=== PATIENT | female | born 1990 | race Caucasian/White ===

== ENCOUNTER 2019-05-25 14:45 | Inpatient (IN) | payer BC, SELFPAY ==
[2015-01-15 22:03] VITALS: BMI 27.1
[2019-05-25] VITALS (35 sets, daily range): BP systolic 91–130; BP diastolic 50–79; PULSE 62–106; TEMP 36.5–37.7; O2SAT 98–100; BMI 32.5
[2019-05-25 14:42] LABS: ROM Internal Control Test YES-OK TO RESULT pt. (Internal QC)
[2019-05-25 14:43] LABS: ROM Patient Test POSITIVE (Negative)
[2019-05-25] MEDS: Lactated Ringers 1,000 ML 200 ML IV ×2 (15:20→20:35)
[2019-05-25 15:35] LABS: Absolute Lymphocyte Count 1.35 X10^3/uL (0.83-4.51); Absolute Neutrophil Count 7.9 X10^3/uL (2.0-7.7); Basophil# 0.05 X10^3/uL; Basophil% 0.5 % (0-1); Eosinophil# 0.06 X10^3/uL; Eosinophils% 0.6 % (0-5); Hematocrit 32.5 % (37-47); Hemoglobin 10.4 g/dL (12.0-15.0); Lymphocyte # 1.35 X10^3/ul (4.0); Lymphocyte % 13.4 % (19-41); Mean Corpuscular Hgb 28.8 pg (27.0-32.0); Monocyte# 0.62 X10^3/uL; Monocyte% 6.1 % (0-10); NRBC Flagged by Analyzer 0 % (0-5); Neutrophil % 78.3 % (47-70); Platelet Count 153 K/mm3 (150-450); RBC Distribution Width CV 16.1 % (11.6-14.6); RBC Distribution Width SD 52.6 fl (35.1-43.9); Red Blood Count 3.61 M/mm3 (4.2-5.4); White Blood Count 10.1 K/mm3 (4.4-11.0)
[2019-05-25] MEDS: Lactated Ringers 500 ML 999 ML IV ×2 (18:05→21:36)
[2019-05-25] MEDS: Oxytocin 30 units/NS 500 ml 30 UNITS/500 ML IV.SOLN IV (18:38)
--- NOTE | 2019-05-25 18:39 | HP.PCM_ITS ---
History Date of Admission: 01/11/15 Final JONAH: 06/03/19 Final JONAH Source: LMP Gestational age: 38 Weeks and 5 Days History of this : This is a 28 year-old, 2 para 1 at 38-5/7 weeks presents for spontaneous rupture membranes. She is also having some contractions. She thinks she had spontaneous rupture membranes sometime in the middle of the night or at approximately 7 AM when she awoke. She denies any gross vaginal bleeding. She is had good movement. Allergies amoxicillin Allergy (Verified 05/25/19 14:22) Hives azithromycin [From Zithromax Z-Mele] Allergy (Verified 05/25/19 14:22) Rash macadamia nut oil Allergy (Verified 05/25/19 13:42) Shortness of breath Home Medications: Home Medications Vits [Prenatabs FA ] 1 tablet PO DAILY 06/24/14 Ibuprofen [Motrin] 600 mg PO Q6H PRN PRN #60 tablet 01/18/15 Cetirizine HCl [Zyrtec] 1 dose PO DAILY 05/25/19 Omeprazole Magnesium [Prilosec Otc] 1 tab PO DAILY 05/25/19 Smoking Status: Never smoker Alcohol: None Number of Fetus(es): 1 NST - FHR Rate Baby A Baseline: normal Variability:: Moderate Accelerations:: 15 x 15 Decelerations:: None NST Reactive:: Yes FHR Category:: Category I Uterine Activity:: irreg ctxs History Past Pregnancies: Past Pregnancies Delivery Date Name GA/ Weeks Outcome Route Wt Infant Sex Labor Length Anesthesia Delivery Location Provider FOB Expected Infant Delivery Method: Spontaneous Vaginal Review of Systems Constitutional: Denies: Fever Respiratory: Denies: Cough, Shortness of Breath Gastrointestinal: Denies: Abdominal Pain, Constipation, Diarrhea Neurological: Denies: Blurred vision, Slurred speech, Confusion Physical Exam Vitals: Vital Signs Temp Pulse BP Pulse Ox 99.3 F H 106 H 117/79 100 05/25/19 18:02 05/25/19 18:02 05/25/19 18:02 05/25/19 18:02 General: Alert, Cooperative, No apparent distress Cardiovascular: Regular rate Lungs: Normal air movement Abdomen: Soft, Non Tender, Non-Distended, Gravid COMMUNITY OUTREACH COORDINATOR: Normal external genitalia Estimated gestational size: Appropriate for gestational size Presentation: Cephalic Assessment/Plan This is a 28 year-old, 2 para 1 at 38-5/7 weeks gestation with spontaneous rupture membranes. Early labor. Pitocin augmentation. May have epidural as needed for pain control. Estimated weight is less than 4500 g clinically and pelvis clinically adequate to expect vaginal delivery.
[2019-05-25] MEDS: fentaNYL-bupivacaine (epidural) 100 ML BAG EPIDURAL ×2 (19:19→23:20)
[2019-05-26] VITALS (33 sets, daily range): BP systolic 103–123; BP diastolic 55–68; PULSE 80–112; RESP 14–18; TEMP 36.2–38.2; O2SAT 99–100
--- NOTE | 2019-05-26 | PLAC_PTH ---
PATIENT: CATHY ARRIETA LOC: [facility] U#:[id number] AGE/SX: 28/F ROOM: WP015 RE05/25/[address]: Dr. Natacha Acevedo MD : 1990 BED: 1 DIS: 05/28/2019 SPEC #: [id number] RECD: 05/26/19 08:57 STATUS: GISELA REQ #: [id number] MARJORIE: 05/26/19 00:[address]: Natacha Acevedo DEPT: SURGICAL PATHOLOGY RECD BY: Kennedy Khan ENTERED: 05/29/19 10:05 SP TYPE: PLACENTA OTHR DR: Dr. Ramon Asencio, DO Tissues: Placenta, NOS Procedures: Surgery Specimen Level V HEADER OPERATION: Vaginal delivery PRE-OP DIAGNOSIS: Fever, prolonged rupture of membranes TISSUE SUBMITTED: Placenta MICROSCOPIC DIAGNOSIS Placenta: Placental disc - third trimester placenta (573 gm). Membranes - no pathologic diagnosis. Umbilical cord - three blood vessels and no pathologic diagnosis. SJ:josh 05/30/19 MICROSCOPIC DESCRIPTION Slides are reviewed. GROSS DESCRIPTION SPECIMEN: PLACENTA / CLINICAL INFORMATION: A. Weight: 3.603 kg B. Gestational Age: 38 weeks C. Sex: Female PLACENTAL WEIGHT (POST FIXATION): 573 gm PLACENTAL DIMENSIONS: 19 x 17 x 4 cm PLACENTAL SHAPE: Usual ovoid PLACENTAL WEIGHT FOR GESTATIONAL AGE: Within 10-99th percentile MEMBRANES - Present A. Insertion: Marginal B. Site of rupture from edge: 4 cm from edge of placental disc C. Color of membrane: Marley-smith D. Abnormalities: None UMBILICAL CORD - Present A. Color: Marley-smith B. Insertion: Paracentral C. Length: 17 cm D. Diameter: 1.4 cm E. Number of vessels: Three F. Abnormalities: None PLACENTAL DISC - Present A. Color of surface: Marley-smith B. surface abnormalities: None C. Maternal cotyledons: Intact with minimal tears D. Attached retro placental clot: No clot E. Cut surface: Dark red and spongy F. Lesions: None G. Separate clot: Absent SECTIONS SUBMITTED: 1. Membrane roll 2. Cord, maternal end 3. Cord, end 4. Placental disc, and maternal surfaces 5. Placental disc, and maternal surfaces 6. Placental disc, and maternal surfaces SJ:josh 05/29/19 TC:4 CPT: 64686
[2019-05-26] MEDS: Lactated Ringers 500 ML 999 ML IV ×2 (01:30→05:36)
[2019-05-26] MEDS: Lactated Ringers 1,000 ML 200 ML IV (02:41)
[2019-05-26] MEDS: Amnioinfusion- 0.9% NS 1,000 ML IV.SOLN. INTRA-UTER (04:00)
[2019-05-26] MEDS: Acetaminophen 325 MG Tablet PO (04:20)
[2019-05-26] MEDS: fentaNYL-bupivacaine (epidural) 100 ML BAG EPIDURAL (04:50)
[2019-05-26] MEDS: Oxytocin 30 units/NS 500 ml 30 UNITS/500 ML IV.SOLN 334 UNITS IV (07:23)
--- NOTE | 2019-05-26 07:43 | PCM.OPRPT ---
Report of Operation Date of Procedure: 05/26/19 Vaginal Delivery Maternal Presentation: Active Labor, Spontaneous Rupture of Membranes Amniotic Membrane Rupture Type: Spontaneous at home Amniotic Fluid Description: Clear Final JONAH: 06/03/19 Final JONAH Source: US <20 weeks Gestational age: 38 Weeks and 6 Days Date of Procedure: 05/26/19 Pre-Operative Diagnosis: labor, prolonged rupture of membranes, suspected triple I Post-Operative Diagnosis: same + persistent category 2 FHTs Surgery/ Procedure Performed: Vacuum Assisted Vaginal Delivery - outlet Type of Anesthesia: Epidural Description of Procedure: The patient had a fever with tachycardia. She had prolonged rupture membranes. She had suspected triple I. There was persistent tachycardia with variable decelerations despite an amnioinfusion and other resuscitative measures. The patient had pushed to where the position was BRANDON and the head was labia 3 cm and the skull was on the pelvic floor. A Dumont catheter was in place. Estimated weight was less than 4500 g. The pelvis was clinically adequate. Epidural was adequate. I discussed with the patient and her partner option of trial of outlet vacuum-assisted vaginal delivery. They desire to proceed. The vacuum was placed on the flexion point and the vacuum created to 550 mmHg. I pulled with 1 contraction with no pop offs to and the vacuum was removed. The patient then delivered the remainder the head on the next push. A loose nuchal cord x1 was easily reduced. The remainder the was delivered with maternal pushing and gentle traction only in less than 15 seconds without difficulty. The infant was placed on the maternal abdomen where it was attended to by the nursing staff. Cord clamping was only delayed about 30 seconds as the baby was not making vigorous crying efforts immediately upon delivery. As soon as the cord was clamped and cut, the infant became vigorous and was not removed from the maternal abdomen. The placenta was delivered spontaneously and intact. The second-degree perineal laceration was repaired with 2-0 Vicryl suture in a running standard fashion. Cervix and vagina were intact. Sponge and needle counts were correct. Vaginal sweep was completed by me. Presentation: BRANDON Placental Delivery Description: Spontaneous Placenta Disposition: [facility] Cord Vessel Description: 3 Vessels Nuchal Cord Compression: Without compression Cord Gases drawn per routine: VBG - unable to draw ABG Cord Entanglement: Around neck x 1, loose Drain: Dumont to straight drain Estimated Blood Loss: 300 Infant A gender: Female - Whit (1 minute): 8 (5 minute): 9 Episiotomy Description: None Laceration: 2nd degree Medications given after delivery: IV Pitocin Complications: None
[2019-05-26 09:03] LABS: Pathology Specimen OB SEE PATHOLOGY REPORT
[2019-05-26] MEDS: Acetaminophen 500 MG Tablet 1000 MG PO ×2 (09:18→22:55)
[2019-05-26] MEDS: Ibuprofen 600 MG Tablet PO ×2 (10:33→16:52)
--- NOTE | 2019-05-26 11:04 | PCM.PN.BLA ---
Progress Note At bedside to discuss Zoloft with patient. She reports feeling well at this time but desires to start Zoloft to prevent a recurrence of depression. She states she had depression after the of her first child and was on Zoloft and did well. She denies any suicidal homicidal ideations at this time. Discussed starting Zoloft with patient and she desires to proceed. STROKE Vital Signs/Narrative: Vital Signs Temp Pulse BP 05/26/19 09:43 103 H 110/55 L 05/26/19 09:28 96 113/57 L 05/26/19 09:20 99.0 F 05/26/19 09:13 103 H 107/57 L 05/26/19 08:58 94 111/60 05/26/19 08:45 98.9 F 05/26/19 08:43 102 H 106/58 L 05/26/19 08:28 106 H 116/63 05/26/19 08:15 99.5 F H 05/26/19 08:13 100 111/55 L 05/26/19 07:58 96 115/59 L 05/26/19 07:44 99.6 F H 96 115/55 L
[2019-05-26] MEDS: Senna/Docusate Sodium 1 Tablet PO (12:39)
[2019-05-26] MEDS: Sertraline 50 MG Tablet PO (18:40)
[2019-05-27] VITALS (9 sets, daily range): BP systolic 103–115; BP diastolic 52–71; PULSE 79–88; RESP 16–18; TEMP 36.2–36.7
[2019-05-27 05:12] LABS: Hematocrit 30.9 % (37-47); Hemoglobin 9.8 g/dL (12.0-15.0); Mean Corp Hgb Conc 31.7 g/dL (32-36); Mean Corpuscular Hgb 28.9 pg (27.0-32.0); Mean Corpuscular Volume 91.2 fL (81-99); Mean Platelet Vol. 10.7 fl (6.2-12.0); Platelet Count 133 K/mm3 (150-450); RBC Distribution Width SD 52.7 fl (35.1-43.9); Red Blood Count 3.39 M/mm3 (4.2-5.4); White Blood Count 7.9 K/mm3 (4.4-11.0)
[2019-05-27] MEDS: Ibuprofen 600 MG Tablet PO ×2 (07:17→18:42)
--- NOTE | 2019-05-27 10:12 | PN.OBGYN_ITS ---
Subjective: Patient doing well. Denies fevers, lightheadedness, dizziness, chest pain, shortness of breath, leg pain. She is ambulating and voiding without di fficulty. Tolerating regular diet without nausea or vomiting. Lochia normal. She is bottlefeeding. She is doing well this morning and has no complaints. - Physical Exam Vitals/I&O's: Vital Signs Temp Pulse Resp BP Pulse Ox 97.2 F L 79 16 108/65 100 05/27/19 08:16 05/27/19 08:16 05/27/19 07:55 05/27/19 08:16 05/26/19 06:26 Oxygen Delivery Method Room Air Weight: 190 lb Body Mass Index (BMI) 32.5 Intake and Output for Last 24 Hours 05/25/19 05/26/19 05/27/19 23:59 23:59 23:59 Intake Total 2231.19 / 2231.19 3324.48 / 3324.48 Output Total 450 / 450 2900 / 2900 Balance 1781.19 / 1781.19 424.48 / 424.48 General: Alert, No apparent distress HEENT: Atraumatic Abdomen: Non-Distended Skin: No rashes Neurological: Neuro grossly intact Psych/Mental Status: Normal Affect, Appropriate Laboratory Results 05/26/19 10:10: Screen NEGATIVE, Baby's Blood Type A POSITIVE, Baby's MADIE NEGATIVE 05/27/19 04:50: WBC 7.9, RBC 3.39 L, Hgb 9.8 L, Hct 30.9 L, MCV 91.2, MCH 28.9, MCHC 31.7 L, RDW Std Deviation 52.7 H, RDW Coeff of Amanda 16.0 H, Plt Count 133 L, MPV 10.7 Current Medications Acetaminophen (Tylenol) 1,000 mg PO Q8H PRN PRN PRN Reason: Pain Score 1-3/10 Last Admin: 05/26/19 22:55 Dose: 1,000 mg Documented by: Bisacodyl (Dulcolax) 10 mg RECTAL UD PRN PRN Reason: If no BM Dibucaine (Dibucaine) 1 applic TOPICAL TID PRN PRN; Protocol PRN Reason: Discomfort Hydrocortisone (Hytone) 1 applic TOPICAL TID PRN PRN; Protocol PRN Reason: Discomfort Ibuprofen (Motrin) 600 mg PO Q6H PRN PRN PRN Reason: Pain Score 1-10/10 Last Admin: 05/27/19 07:17 Dose: 600 mg Documented by: Methylergonovine Maleate (Methergine) 0.2 mg IM X1 PRN PRN Reason: Excess bleeding/uterine atony Ondansetron HCl (Zofran) 4 mg IV Q4H PRN PRN PRN Reason: Nausea Prochlorperazine Edisylate (Compazine Iv) 10 mg IV Q6H PRN PRN PRN Reason: NAUSEA/VOMITING Senna/Docusate Sodium (Senokot-S, Caitie-Colace) 1 - 2 tablet PO DAILY PRN PRN PRN Reason: Constipation Last Admin: 05/26/19 12:39 Dose: 2 tablet Documented by: Sertraline HCl (Zoloft) 50 mg PO DAILY@1900 YUE Last Admin: 05/26/19 18:40 Dose: 50 mg Documented by: Simethicone (Mylicon) 80 mg PO PCHS PRN PRN Reason: Indigestion/Stomach pain Sodium Chloride () 5 - 15 ml IV UD PRN PRN Reason: SALINE FLUSH Throat Lozenges (Dermoplast (Sp)) 1 applic TOPICAL 4X/DAY PRN PRN; Protocol PRN Reason: Pain Score 1-10/10 Last Admin: 05/26/19 16:08 Dose: 1 applic Documented by: Medical Necessity - Tobacco Use Smoking Status: Never smoker Assessment/Plan Pt is day 1 from a vacuum-assisted vaginal delivery. Suspected triple I- she received 1 dose of gentamicin and clindamycin . She has been afebrile for 24 hours. White blood cell count within normal limits this morning. She is doing well this morning and bottlefeeding. Anticipate discharge home tomorrow. Platelets were low at 133 today, so we will repeat a CBC in the morning to ensure the platelets are trending up.
--- NOTE | 2019-05-27 11:55 | CASEMGMT ---
Social Work Brief Assessment - Labor and Delivery Unit Refer documentation below for further details. Date of Referral/Notification: 05/26/2019 Time of Referral: 11:52a Reason for Referral: HISTORY OF DEPRESSION AND POST DEPRESSION (PPD) WITH FIRST CHILD Date of Intervention: 05/27/2019 Time of Intervention: 11:55a Informant: Medical record and mother of baby (MOB) Assessment: MET WITH MOB AND FOB IN ROOM. INTRODUCED ROLE AND REASON FOR REFERRAL. MOB DISCUSSED HISTORY OF DEPRESSION AND PPD WITH FIRST CHILD. MOB REPORTS STARTED BACK ON ZOLOFT YESTERDAY AND REPORTS IS DOING WELL. MOB DENIES ANY NEED FOR COUNSELING AT THIS TIME. EDUCATIONAL RESOURCES PROVIDED. MOB AND FOB DENY ANY QUESTIONS OR CONCERNS. UPDATED NURSE ON THIS WORKER?S ASSESSMENT. NURSE VOICES NO CONCERNS. Plan: HOME WITH RESOURCES PROVIDED. No further needs requested or indicated. -Lauryn Messina, CHIPS SCREEN TENDER, HULL AND DECK REMOVER
[2019-05-27] MEDS: Acetaminophen 500 MG Tablet 1000 MG PO ×2 (13:18→21:41)
[2019-05-27] MEDS: Senna/Docusate Sodium 1 Tablet PO (13:18)
[2019-05-27] MEDS: Sertraline 50 MG Tablet PO (18:40)
[2019-05-28 01:09] VITALS: BP 110/64; PULSE 86; RESP 16; TEMP 36.3
[2019-05-28 01:10] VITALS: TEMP 36.3
[2019-05-28 01:11] VITALS: BP 110/64; PULSE 86
[2019-05-28] MEDS: Ibuprofen 600 MG Tablet PO ×2 (01:12→07:27)
[2019-05-28 07:42] VITALS: BP 108/68; PULSE 65
[2019-05-28 07:55] VITALS: BP 108/68; PULSE 65; RESP 18; TEMP 36.8
[2019-05-28 09:38] LABS: Hematocrit 32.3 % (37-47); Hemoglobin 9.9 g/dL (12.0-15.0); Mean Corp Hgb Conc 30.7 g/dL (32-36); Mean Corpuscular Volume 94.7 fL (81-99); Mean Platelet Vol. 11.3 fl (6.2-12.0); Platelet Count 157 K/mm3 (150-450); RBC Distribution Width CV 16.5 % (11.6-14.6); RBC Distribution Width SD 55.9 fl (35.1-43.9); Red Blood Count 3.41 M/mm3 (4.2-5.4)
--- NOTE | 2019-05-28 09:38 | PCM.PN.OB ---
Subjective: Patient is doing well. She denies fevers, chills, lightheadedness, chest pain, shortness of breath, leg pain. She is ambulating and voiding without difficulty. Tolerating regular diet without nausea or vomiting. Lochia normal. Pain well controlled. - Physical Exam Vitals/I&O's: Vital Signs Temp Pulse Resp BP Pulse Ox 98.3 F 65 18 108/68 100 05/28/19 07:55 05/28/19 07:55 05/28/19 07:55 05/28/19 07:55 05/26/19 06:26 Oxygen Delivery Method Room Air Weight: 190 lb Body Mass Index (BMI) 32.5 Intake and Output for Last 24 Hours 05/26/19 05/27/19 05/28/19 23:59 23:59 23:59 Intake Total 3324.48 / 3324.48 Output Total 2900 / 2900 Balance 424.48 / 424.48 General: Alert, No apparent distress HEENT: Atraumatic Abdomen: Non-Distended Extremities: No edema Skin: No rashes Neurological: Neuro grossly intact Psych/Mental Status: Normal Affect, Appropriate Laboratory Results 05/28/19 09:01: WBC Pending, RBC Pending, Hgb Pending, Hct Pending, MCV Pending, MCH Pending, MCHC Pending, RDW Std Deviation Pending, RDW Coeff of Amanda Pending, Plt Count Pending Current Medications Acetaminophen (Tylenol) 1,000 mg PO Q8H PRN PRN PRN Reason: Pain Score 1-3/10 Last Admin: 05/27/19 21:41 Dose: 1,000 mg Documented by: Bisacodyl (Dulcolax) 10 mg RECTAL UD PRN PRN Reason: If no BM Dibucaine (Dibucaine) 1 applic TOPICAL TID PRN PRN; Protocol PRN Reason: Discomfort Hydrocortisone (Hytone) 1 applic TOPICAL TID PRN PRN; Protocol PRN Reason: Discomfort Ibuprofen (Motrin) 600 mg PO Q6H PRN PRN PRN Reason: Pain Score 1-10/10 Last Admin: 05/28/19 07:27 Dose: 600 mg Documented by: Methylergonovine Maleate (Methergine) 0.2 mg IM X1 PRN PRN Reason: Excess bleeding/uterine atony Ondansetron HCl (Zofran) 4 mg IV Q4H PRN PRN PRN Reason: Nausea Prochlorperazine Edisylate (Compazine Iv) 10 mg IV Q6H PRN PRN PRN Reason: NAUSEA/VOMITING Senna/Docusate Sodium (Senokot-S, Caitie-Colace) 1 - 2 tablet PO DAILY PRN PRN PRN Reason: Constipation Last Admin: 05/27/19 13:18 Dose: 1 tablet Documented by: Sertraline HCl (Zoloft) 50 mg PO DAILY@1900 YUE Last Admin: 05/27/19 18:40 Dose: 50 mg Documented by: Simethicone (Mylicon) 80 mg PO HS PRN PRN Reason: Indigestion/Stomach pain Sodium Chloride () 5 - 15 ml IV UD PRN PRN Reason: SALINE FLUSH Throat Lozenges (Dermoplast (Sp)) 1 applic TOPICAL 4X/DAY PRN PRN; Protocol PRN Reason: Pain Score 1-10/10 Last Admin: 05/26/19 16:08 Dose: 1 applic Documented by: Medical Necessity - Tobacco Use Smoking Status: Never smoker Assessment/Plan Patient is day 2 from a vacuum-assisted vaginal delivery with suspected triple I. She has been afebrile for over 48 hours. White blood cell count was normal yesterday and is pending this morning. We will make sure platelets are trending up today prior to discharge. She is meeting all milestones to go home and desires to go home today. She feels her mood is stable on the Zoloft and she has no concerns. We will continue Zoloft 50 mg daily. Instructed her to follow-up in 1 or 2 weeks as well as in 6 weeks for visits.
--- NOTE | 2019-05-28 09:43 | PCM.DCVAG ---
Discharge Diet: No Restrictions Discharge Activity: May Shower, May Take a Tub Bath May resume sexual activity in: 6 weeks Ice area for (Minutes): 15 Weight Bearing Status: Weight bearing as tolerated Call your doctor if you observe: Fever of 101 or Higher, Inability to urinate, Inability to have a bowel movement, Using more than one pad per hour, Shortness of breath, Dizziness, Fainting spells, Chest pain, Increased palpitations (irregular heartbeat), Calf discomfort, Uncontrolled pain Cleanse incision/area with: Soap & Water Additional Instructions: If you experience any of the following, contact your healthcare provider. Bleeding that soaks a pad every hour for 2 hours Fever 100.4 or higher Unrelieved incision or abdominal pain Swelling, redness, discharge or bleeding from your incision or episiotomy site Your incision begins to separate Problems urinating (including inability to urinate or burning while urinating). Visual changes Severe headache Flu-like symptoms Pain or redness in one of both of your breasts Pain, warmth, tenderness or swelling in your legs, especially the calf area Frequent nausea and vomiting Symptoms of depression or anxiety If you experience any of the following, call 911 or go to the nearest Emergency Room. Chest pain Problems breathing Seizure activity Partial or complete paralysis of a body part, slurred speech, weakness or drooping of the face, or a sudden inability to walk or hold your balance Allergies/Adverse Reactions: Allergies amoxicillin Allergy (Verified 05/25/19 14:22) Hives azithromycin [From Zithromax Z-Mele] Allergy (Verified 05/25/19 14:22) Rash macadamia nut oil Allergy (Verified 05/25/19 13:42) Shortness of breath Medications to take at Discharge Vits [Prenatabs FA ] 1 tablet PO DAILY 06/24/14 Ibuprofen [Motrin] 600 mg PO Q6H PRN PRN #60 tablet 01/18/15 Cetirizine HCl [Zyrtec] 1 dose PO DAILY 05/25/19 Omeprazole Magnesium [Prilosec Otc] 1 tab PO DAILY 05/25/19 Docusate Sodium [Colace] 100 mg PO BID #30 cap 05/28/19 Ibuprofen [Motrin] 600 mg PO Q6H PRN PRN #30 tab 05/28/19 Sertraline HCl [Zoloft] 50 mg PO DAILY #30 tab 05/28/19 The following prescriptions were given: Docusate Sodium [Colace] 100 mg PO BID #30 cap Transmission Status: Pending to [facility] [facility] Ibuprofen [Motrin] 600 mg PO Q6H PRN PRN #30 tab PRN Reason: Pain Score 6-10/10 Transmission Status: Pending to [facility] [facility] Sertraline HCl [Zoloft] 50 mg PO DAILY #30 tab Transmission Status: Pending to [facility] [facility] When: 6 week virtual visit. Can also scheduled a virtual visit in 1-2 weeks if you desire Primary Care Physician: Ramon Asencio DO [Primary Care Provider] - Test Results: Test results from this visit will be discussed in further detail at your follow-up appointment, if applicable.
[2019-05-28 10:49] VITALS: BP 110/72; PULSE 66; RESP 16; TEMP 36.7
== END 2019-05-28 11:40 | disposition home or self-care (01) | DRG 805 ==
LOC: WPOUT 14:50 → WP 14:50
PROVIDERS: Obstetrics & Gynecology; Admitting Provider Obstetrics & Gynecology; PCP Student in an Organized Health Care Education/Training Program; Referring Provider Obstetrics & Gynecology; Visit Provider Obstetrics & Gynecology
DX: O76 Abnormality in fetal heart rate and rhythm complicating labor and delivery (principal); O41.1230 Chorioamnionitis, third trimester, not applicable or unspecified; Z37.0 Single live birth; O70.1 Second degree perineal laceration during delivery; O42.92 Full-term premature rupture of membranes, unspecified as to length of time between rupture and onset of labor; O69.1XX0 Labor and delivery complicated by cord around neck, with compression, not applicable or unspecified; Z3A.38 38 weeks gestation of pregnancy; Z79.899 Other long term (current) drug therapy; Z88.0 Allergy status to penicillin
CPT/HCPCS: 59025; 59050; 84112; 85025; 85027; 85461; 86850; 86900; 86901; 88307; 90384; 99218; J7030; J7120; G0378; J2790

== ENCOUNTER 2020-12-04 19:11 | Emergency (ER) | payer OTHER, SELFPAY ==
[2020-12-04 19:12] VITALS: BP 134/90; PULSE 111; RESP 18; TEMP 35.9; O2SAT 96; BMI 30.4
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
[2020-12-04] MEDS: Acetaminophen 500 MG Tablet 1000 MG PO (19:57)
== END 2020-12-04 20:17 | disposition home or self-care (01) ==
LOC: ED 19:37
PROVIDERS: Emergency Provider Emergency Medicine; PCP Student in an Organized Health Care Education/Training Program
DX: S93.401A Sprain of unspecified ligament of right ankle, initial encounter (principal); M25.531 Pain in right wrist; M25.521 Pain in right elbow; V43.52XA Car driver injured in collision with other type car in traffic accident, initial encounter; Y93.9 Activity, unspecified; Y92.410 Unspecified street and highway as the place of occurrence of the external cause; Y99.9 Unspecified external cause status
CPT/HCPCS: 73090; 73610; 99283